=== PATIENT | female | born 1960 ===

== ENCOUNTER → 2018-12-23 21:31 | Outpatient (REF) | payer SELFPAY ==
[2018-12-26 15:57] LABS: Dehydroepiandrosterone Sulfate 59 mcg/dL (8-188)
[2018-12-26 17:21] LABS: Progesterone < 0.5 ng/mL
[2018-12-26 17:22] LABS: Estradiol < 15 pg/mL
[2018-12-29 16:34] LABS: Testosterone Free 0.4 pg/mL (0.1-6.4); Testosterone Total 6 ng/dL (2-45)
[2018-12-30 13:53] LABS: Estrone,Serum <10
== END ==
LOC: LAB 21:31
PROVIDERS: Visit Provider Naturopath
DX: N95.1 Menopausal and female climacteric states (principal)
CPT/HCPCS: 36415; 82627; 82670; 84144; 84402; 84403